=== PATIENT | male | born 1955 | race American Indian/Alaskan Native ===

== ENCOUNTER 2017-12-12 06:02 | Day surgery (SDC) | payer BC ==
[~2017-12-12 06:02] MED LIST: ANCEF/STERILE WATER 2 GM/20 ML IV NR; NACL 0.9% 1000 ML 1,000 ML IV SCH; PEPCID PO NR; VERSED IV NR
[2017-12-12] MEDS ORDERED: NACL BACTERIOSTATIC INFILTRATI ONE (06:31)
[2017-12-12] MEDS ORDERED: ZOFRAN ONE (07:00)
--- NOTE | 2017-12-12 07:02 | Anesthesia Consultation ---
Anesthesia Consult and Med Hx Date of service: 12/12/17 - Airway Anesthetic Teeth Evaluation: Good ROM Head & Neck: Adequate Mental/Hyoid Distance: Adequate Mallampati Class: Class II Intubation Access Assessment: Good - Pulmonary Exam CTA: Yes - Cardiac Exam Cardiac Exam: No Murmur - Pre-Operative Health Status ASA Pre-Surgery Classification: ASA3 Proposed Anesthetic Plan: General - Pulmonary Hx Smoking: Yes (STOPPED CIGARS X 7 YRS) Hx Asthma: No COPD: Yes Hx Pneumonia: No Hx Sleep Apnea: Yes (DX SLEEP APNEA , NO CPAP USE.) - Cardiovascular System Hx Hypertension: Yes (X 30 YRS) - Central Nervous System Hx Back Pain: Yes (FROM STONE) Hx Psychiatric Problems: No - Gastrointestinal Hx Gastroesophageal Reflux Disease: Yes (food related) - Endocrine Hx End Stage Renal Disease: No Hx Non-Insulin Dependent Diabetes: Yes - Other Systems Hx Alcohol Use: No Hx Substance Use: No Hx Cancer: No
--- NOTE | 2017-12-12 07:02 | Anesthesia Day of Surgery ---
Anesthesia Day of Surgery - Day of Surgery Patient Examined: Yes Patient H&P Reviewed: Yes Patient is NPO: Yes
[2017-12-12] MEDS ORDERED: PERCOCET 5/325 PO PRN (07:23)
[2017-12-12] MEDS ORDERED: ZOFRAN IV PRN (07:23)
[2017-12-12] MEDS ORDERED: DIPRIVAN 10 MG/ML IV ONE (07:34)
[2017-12-12] MEDS ORDERED: XYLOCAINE MPF 2% ONE (07:35)
[2017-12-12] MEDS ORDERED: NEO SYNEPHRINE/NS Syringe(OR USE) IV ONE (07:56)
[2017-12-12] MEDS ORDERED: OMNIPAQUE (300 MG) IR ONE (08:01)
[2017-12-12] MEDS: SUBLIMAZE IV PRN ×2 (08:49→09:18)
--- NOTE | 2017-12-12 09:18 | Operative Report ---
PREOPERATIVE DIAGNOSES: Right flank pain, bilateral renal stones. POSTOPERATIVE DIAGNOSES: Right flank pain, bilateral renal stones (passed stone). PROCEDURE: Cystoscopy, bilateral retrograde pyelograms, right rigid ureteroscopy, double-J stent (6 Bangladeshi 30 cm with an external string). SURGEON: Jaya Espinal MD ANESTHESIA: General. ESTIMATED BLOOD LOSS: Minimal. FLUIDS: Crystalloid. COMPLICATIONS: No complications. INDICATIONS: This patient is a 62-year-old gentleman seen in the office for back pain. CT of the abdomen and pelvis several months ago revealed small stones in the kidneys bilaterally, no hydronephrosis. The patient recently presented to the office with right flank, right distal pain. KUB unremarkable; however, he did have some microscopic hematuria. Persistent pain prompted surgical evaluation. Risks, benefits, and complications were explained. DESCRIPTION OF PROCEDURE: The patient was taken to the operative suite, placed in a supine position. After adequate general anesthesia, placed in a dorsal lithotomy position, prepped and draped in a sterile fashion. Obvious penile prosthesis could be palpated and functional. Rigid cystoscopy was performed. Urethra, prostate normal. Mild trilobar obstruction. Bladder, small fragments consistent with a small stone possibly broke up in the bladder. These could be washed out without difficulty. No tumors were noted bilaterally. Both ureteral orifices were in normal position. Bilateral retrograde pyelograms were obtained with an 8 Bangladeshi Montour catheter and 8 mL of contrast. No filling defects or obstruction. However, due to his persistent pain, 0.035 Glidewire was placed in the right kidney x 2. Ureteroscopy up to the proximal ureter. No obvious stone could be appreciated; however, there was some edema of the distal ureter suggested a recently passed stone. A 6-Bangladeshi 30 cm double-J stent was placed in the right collecting system under fluoroscopy, external string was left indwelling. Fluoroscopy confirmed adequate position. The bladder was drained. Rectal exam was benign. He was extubated and taken to recovery room in stable condition. He will go home on [place] [employer]. JOB# [id number] C/BOBY
--- NOTE | 2017-12-12 10:05 | Post Anesthesia Evaluation ---
- Post Anesthesia Evaluation Patient Participated: Yes Airway Patent: Yes Stable Respiratory Function: Yes Nausea/Vomiting: No Temp > 96.8F: Yes Pain Manageable: Yes Adequeate Hydration: Yes Anesthesia Complications: No Block Receding Appropriately: Not Applicable Patient on Ventilator: No
[2017-12-12 11:18] VITALS: BP 143/86
--- NOTE | 2017-12-13 10:57 | Fluoroscopy Report ---
10 FLUOROSCOPIC IMAGES AT BILATERAL RETROGRADE PYELOGRAM: 12/12/17 CLINICAL: Right ureteral stone. FINDINGS: Stained Glass Painter images a phlebolith in the left pelvis but no definite urinary calculus.. Subsequent images demonstrate retrograde opacification of normal caliber bilateral renal collecting systems and ureters. A right ureteral stent was placed. For more detail, please refer to the operative report.
== END 2017-12-12 10:42 | disposition home or self-care (01) ==
LOC: OR 06:02
PROVIDERS: ATTEND Urology
DX: N20.0 Calculus of kidney (principal); J44.9 Chronic obstructive pulmonary disease, unspecified; K21.9 Gastro-esophageal reflux disease without esophagitis; E11.9 Type 2 diabetes mellitus without complications; Z87.891 Personal history of nicotine dependence; Z79.899 Other long term (current) drug therapy; Z79.84 Long term (current) use of oral hypoglycemic drugs
CPT/HCPCS: 52332; 74420; 82962; C1758; C1769; C2617; J0690; J2250; J2370; J2405; J2704; J3010; J7030; Q9967

== ENCOUNTER 2018-04-01 14:37 | Emergency (ER) | payer BC ==
[2018-04-01 14:55] VITALS: BP 104/68
[2018-04-01] MEDS ORDERED: BENADRYL IV ONE (17:16)
[2018-04-01] MEDS ORDERED: FIORICET PO ONE (17:16)
[2018-04-01] MEDS ORDERED: DECADRON IV ONE (17:16)
[2018-04-01] MEDS ORDERED: REGLAN IV ONE (17:16)
--- NOTE | 2018-04-01 18:04 | Cat Scan Report ---
FINAL REPORT EXAM: CT HEAD/BRAIN WO CON HISTORY: headache TECHNIQUE: CT head without contrast PRIORS: None. FINDINGS: No acute intra-axial or extra-axial hemorrhage is identified. There is no evidence of midline shift or mass effect. The ventricles and sulci are within normal limits. Schwartz-white matter differentiation is intact. No acute parenchymal abnormalities seen. Bony calvarium is grossly intact. Visualized portions of the mastoids and paranasal sinuses are unremarkable. IMPRESSION: Negative CT head
[2018-04-01] MEDS ORDERED: NORCO PO ONE (18:37)
--- NOTE | 2018-04-01 18:37 | Emergency Department Report ---
ED General Adult HPI - General Chief complaint: Headache Stated complaint: MIGRAINE/TROUBLE FALLING ASLEEP AT NIGHT Time Seen by Provider: 04/01/18 17:12 Source: patient Mode of arrival: Ambulatory Limitations: No Limitations - History of Present Illness Initial comments: Patient complains of a diffuse headache for the last 3-4 days. He describes the headache as tension-like in nature. Patient states he has headaches at least once a month but this was different because it is not relieved by his home medications. Patient denies this being the worse headache of his life. He states that his headache is made worse by bright lights and loud sounds. Patient states that the headache feels like someone has a vice manager reading on his head -: Sudden Location: head Radiation: non-radiation Severity scale (0 -10): 8 Quality: other (throbbing) Consistency: constant Improves with: none Associated Symptoms: denies other symptoms Treatments Prior to Arrival: none - Related Data Home Medications Medication Instructions Recorded Confirmed Last Taken Benazepril HCl [Lotensin] 20 mg PO DAILY 02/08/16 12/10/17 12/12/17 05:45 Simvastatin [Zocor TAB] 40 mg PO QHS 02/08/16 12/10/17 12/11/17 busPIRone [Buspar] 15 mg PO TID 02/08/16 12/10/17 12/12/17 05:45 Amlodipine Besylate [Norvasc] 10 mg PO DAILY 12/10/17 12/10/17 12/11/17 Insulin Lispro [HumaLOG VIAL] 23 units SQ TID 12/10/17 12/10/17 12/11/17 Vortioxetine Hydrobromide 20 mg PO DAILY 12/10/17 12/10/17 12/12/17 05:45 [Trintellix] hydrALAZINE [Apresoline] 25 mg PO TID 12/10/17 12/10/17 12/12/17 05:45 Previous Rx's Medication Instructions Recorded Last Taken Type Butalb/Acetamin/Caff 50-325-40 1 tab PO Q6HR PRN #24 tab 04/01/18 Unknown Rx [Fioricet] Allergies Allergy/AdvReac Type Severity Reaction Status Date / Time No Known Allergies Allergy Verified 12/10/17 14:24 ED Review of Systems ROS: Stated complaint: MIGRAINE/TROUBLE FALLING ASLEEP AT NIGHT Other details as noted in HPI ED Past Medical Hx - Past Medical History Previous Medical History?: Yes Hx Hypertension: Yes (X 30 YRS) Hx Congestive Heart Failure: No Hx Diabetes: Yes Hx GERD: Yes (FOOD RELATED) Hx Arthritis: Yes (KNEES) Hx Kidney Stones: Yes Hx Asthma: No Hx COPD: Yes Hx Tuberculosis: No (POSITVE SKIN TEST , NO TX , NEGATIVE CXR 1999) Hx HIV: No Additional medical history: LEFT THUMB INJURY - Surgical History Past Surgical History?: No - Social History Smoking Status: Former Smoker Substance Use Type: Prescribed - Medications Home Medications: Home Medications Medication Instructions Recorded Confirmed Last Taken Type Benazepril HCl [Lotensin] 20 mg PO DAILY 02/08/16 12/10/17 12/12/17 05:45 History Simvastatin [Zocor TAB] 40 mg PO QHS 02/08/16 12/10/17 12/11/17 History busPIRone [Buspar] 15 mg PO TID 02/08/16 12/10/17 12/12/17 05:45 History Amlodipine Besylate [Norvasc] 10 mg PO DAILY 12/10/17 12/10/17 12/11/17 History Insulin Lispro [HumaLOG VIAL] 23 units SQ TID 12/10/17 12/10/17 12/11/17 History Vortioxetine Hydrobromide 20 mg PO DAILY 12/10/17 12/10/17 12/12/17 05:45 History [Trintellix] hydrALAZINE [Apresoline] 25 mg PO TID 12/10/17 12/10/17 12/12/17 05:45 History Butalb/Acetamin/Caff 50-325-40 1 tab PO Q6HR PRN #24 tab 04/01/18 Unknown Rx [Fioricet] ED Physical Exam - General Limitations: No Limitations General appearance: alert, in no apparent distress - Head Head exam: Present: atraumatic, normocephalic - Eye Eye exam: Present: normal appearance - ENT ENT exam: Present: mucous membranes moist - Neck Neck exam: Present: normal inspection - Respiratory Respiratory exam: Present: normal lung sounds bilaterally. Absent: respiratory distress - Cardiovascular Cardiovascular Exam: Present: regular rate, normal rhythm. Absent: systolic murmur, diastolic murmur, rubs, gallop - GI/Abdominal GI/Abdominal exam: Present: soft, normal bowel sounds - Rectal Rectal exam: Present: deferred - Extremities Exam Extremities exam: Present: normal inspection - Back Exam Back exam: Present: normal inspection - Neurological Exam Neurological exam: Present: alert, oriented X3, CN II-XII intact. Absent: motor sensory deficit - Psychiatric Psychiatric exam: Present: normal affect, normal mood - Skin Skin exam: Present: warm, dry, intact, normal color. Absent: rash ED Course Vital Signs 04/01/18 14:50 Temperature 98 F Pulse Rate 99 H Respiratory 28 H Rate Blood Pressure 104/68 O2 Sat by Pulse 99 Oximetry ED Medical Decision Making - Medical Decision Making Discussed results with the patient Symptoms improved with medications Critical care attestation.: If time is entered above; I have spent that time in minutes in the direct care of this critically ill patient, excluding procedure time. ED Disposition Clinical Impression: Head ache Disposition: DC-01 TO HOME OR SELFCARE Is pt being admited?: No Does the pt Need Aspirin: No Condition: Stable Instructions: Acute Headache (ED) Additional Instructions: Return if symptoms are worse Prescriptions: Butalb/Acetamin/Caff 50-325-40 [Fioricet] 1 tab PO Q6HR PRN #24 tab PRN Reason: Headache Referrals: PRIMARY CARE, [Primary Care Provider] - 3-5 Days Time of Disposition: 18:38
== END 2018-04-01 19:16 | disposition home or self-care (01) ==
LOC: ED 14:37
DX: R51 Headache (principal); I10 Essential (primary) hypertension; E11.9 Type 2 diabetes mellitus without complications; M19.90 Unspecified osteoarthritis, unspecified site; K21.9 Gastro-esophageal reflux disease without esophagitis; J44.9 Chronic obstructive pulmonary disease, unspecified; Z87.442 Personal history of urinary calculi; Z87.891 Personal history of nicotine dependence; Z79.4 Long term (current) use of insulin
CPT/HCPCS: 70450; 96374; 96375; 99283; J1100; J1200; J2765

== ENCOUNTER 2018-06-19 12:05 | Emergency (ER) | payer BC ==
--- NOTE | 2018-06-19 13:42 | Emergency Department Report ---
ED Headache HPI - General Chief Complaint: Headache Stated Complaint: HEACHACHE Time Seen by Provider: 06/19/18 13:41 Source: patient, family - History of Present Illness Initial Comments: This is a 63-year-old male patient here reports that he has had a bed has been going on for 2 weeks and he has been seen by his primary care physician regarding headache and place him on ibuprofen. He reports he has an appointment with neurologist on 06/25/2018. He denies any blurred vision, dizziness or nausea vomiting. Headache is located at the right side of his head and it feels tense. Denies any change in vision. He said this is not the first time that he had a headache. He came here and had CT scan of the head 2- 3 months ago and I reviewed his chart and CT scan was done and there were no findings. Patient said his headache is 7 out of 10 and it feels tense located to the right side of head. Patient said he was treated with headache medicine that they gave him in March and it helped his headache. I reviewed record and CT scan of his head that was done in March was negative. He said he has been taken Tylenol without any relief. Patient has history of diabetes, COPD, arthritis and hypertension. Timing/Duration: waxing and waning (2 weeks) Quality: severe, other (7/10) Head Injury Location: frontal, parietal (right) Recent Head Trauma: chronic headaches Modifying Factors: improves with: rest Associated Symptoms: denies: confusion, fatigue, facial pain, fever/chills, flushing, loss of consciousness, nausea/vomiting, nasal congestion, nasal drainage, numbness in legs/feet, rash, seizures, sinus infection, stiff neck, vision changes, weakness Allergies/Adverse Reactions: Allergies No Known Allergies Allergy (Verified 12/10/17 14:24) Home Medications: Ambulatory Orders Benazepril HCl [Lotensin] 20 mg PO DAILY 02/08/16 Simvastatin [Zocor TAB] 40 mg PO QHS 02/08/16 busPIRone [Buspar] 15 mg PO TID 02/08/16 Amlodipine Besylate [Norvasc] 10 mg PO DAILY 12/10/17 Insulin Lispro [HumaLOG VIAL] 23 units SQ TID 12/10/17 Vortioxetine Hydrobromide [Trintellix] 20 mg PO DAILY 12/10/17 hydrALAZINE [Apresoline] 25 mg PO TID 12/10/17 Butalb/Acetamin/Caff 50-325-40 [Fioricet] 1 tab PO Q6HR PRN #24 tab 06/19/18 ED Review of Systems ROS: Stated complaint: HEACHACHE Other details as noted in HPI Constitutional: denies: chills, fever Eyes: denies: eye pain, eye discharge, vision change ENT: denies: ear pain, throat pain, congestion Respiratory: denies: cough, shortness of breath, SOB with exertion, SOB at rest , stridor, wheezing Cardiovascular: denies: chest pain, palpitations, edema, syncope Gastrointestinal: denies: abdominal pain, nausea, diarrhea Genitourinary: dysuria. denies: hematuria Musculoskeletal: denies: back pain, joint swelling, arthralgia, myalgia Skin: denies: rash, lesions Neurological: headache. denies: weakness, numbness, paresthesias, confusion, abnormal gait, vertigo ED Past Medical Hx - Past Medical History Previous Medical History?: Yes Hx Hypertension: Yes (X 30 YRS) Hx Congestive Heart Failure: No Hx Diabetes: Yes Hx GERD: Yes (FOOD RELATED) Hx Arthritis: Yes (KNEES) Hx Seizures: Yes Hx Kidney Stones: Yes Hx Asthma: No Hx COPD: Yes Hx Tuberculosis: No (POSITVE SKIN TEST , NO TX , NEGATIVE CXR 1999) Hx HIV: No Additional medical history: LEFT THUMB INJURY - Surgical History Past Surgical History?: Yes Additional Surgical History: right knee cartlidge repair'. left knee torn meniscus - Family History Family history: hypertension - Social History Smoking Status: Never Smoker Substance Use Type: None - Medications Home Medications: Home Medications Medication Instructions Recorded Confirmed Last Taken Type Benazepril HCl [Lotensin] 20 mg PO DAILY 02/08/16 12/10/17 12/12/17 05:45 History Simvastatin [Zocor TAB] 40 mg PO QHS 02/08/16 12/10/17 12/11/17 History busPIRone [Buspar] 15 mg PO TID 02/08/16 12/10/17 12/12/17 05:45 History Amlodipine Besylate [Norvasc] 10 mg PO DAILY 12/10/17 12/10/17 12/11/17 History Insulin Lispro [HumaLOG VIAL] 23 units SQ TID 12/10/17 12/10/17 12/11/17 History Vortioxetine Hydrobromide 20 mg PO DAILY 12/10/17 12/10/17 12/12/17 05:45 History [Trintellix] hydrALAZINE [Apresoline] 25 mg PO TID 12/10/17 12/10/17 12/12/17 05:45 History Butalb/Acetamin/Caff 50-325-40 1 tab PO Q6HR PRN #24 tab 06/19/18 Unknown Rx [Fioricet] ED Physical Exam - General Limitations: No Limitations General appearance: alert, in no apparent distress - Head Head exam: Present: atraumatic, normocephalic, normal inspection, other (normal exam) - Eye Eye exam: Present: normal appearance, PERRL, EOMI. Absent: conjunctival injection, nystagmus, periorbital swelling, periorbital tenderness Pupils: Present: normal accommodation - ENT ENT exam: Present: normal exam, normal orophraynx, mucous membranes moist, TM's normal bilaterally, normal external ear exam, other (nasal mucosa normal and bilateral frontomaxillary sinuses nontender to palpate) - Neck Neck exam: Present: normal inspection, full ROM, other (no C-spine tenderness). Absent: tenderness, lymphadenopathy - Respiratory Respiratory exam: Present: normal lung sounds bilaterally. Absent: respiratory distress, chest wall tenderness - Cardiovascular Cardiovascular Exam: Present: regular rate, normal rhythm, normal heart sounds. Absent: systolic murmur, diastolic murmur - GI/Abdominal GI/Abdominal exam: Present: soft, normal bowel sounds. Absent: distended, tenderness, guarding, rebound, rigid, mass - Extremities Exam Extremities exam: Present: normal inspection, full ROM, normal capillary refill , other (No cce. + 2 pulses in all extremities, no neurovascular compromise). Absent: tenderness, pedal edema, joint swelling, calf tenderness - Back Exam Back exam: Present: normal inspection, full ROM, other (ambulates without any difficulties). Absent: tenderness, CVA tenderness (R), CVA tenderness (L), muscle spasm, paraspinal tenderness, vertebral tenderness, rash noted - Neurological Exam Neurological exam: Present: alert, oriented X3, normal gait, reflexes normal. Absent: motor sensory deficit - Expanded Neurological Exam Expanded Neurological exam: Absent: innattentive, memory loss-remote event, memory loss- recent event, ataxia, receptive aphasia, expressive aphasia, total aphasia, tremor, protecting the airway Patient oriented to: Present: person, place, time Speech: Present: fluid speech Cranial nerves: EOM's Intact: Normal, Gag Reflex: Normal, Tongue Deviation: Normal, Nystagmus: Normal, Facial Sensation: Normal Cerebellar function: Romberg: Normal Upper motor neuron: Pronator Drift: Normal, Sensory Extinction: Normal Sensory exam: Upper Extremity Light Touch: Normal, Upper Extremity Pin Prick: Normal, Upper Extremity Temperature: Normal, UE 2 Point Discrimination: Normal, Lower Extremity Light Touch: Normal, Lower Extremity Pin Prick: Normal Motor strength exam: RUE: 5, LUE: 5, RLE: 5, LLE: 5 Best Eye Response (Wil[place]): (4) open spontaneously Best Motor Response ([place]): (6) obeys commands Best Verbal Response (Wilner): (5) oriented Wilner Total: 15 - Psychiatric Psychiatric exam: Present: normal affect, normal mood - Skin Skin exam: Present: warm, dry, intact, normal color. Absent: rash ED Course Vital Signs 06/19/18 06/19/18 12:29 14:17 Temperature 98.1 F Pulse Rate 91 H Respiratory 20 16 Rate Blood Pressure 144/92 O2 Sat by Pulse 98 Oximetry - Reevaluation(s) Reevaluation #1: 06/19/18 16:50 Patient given Decadron 10 mg IM, Reglan 10 mg IM and Toradol 60 mg IM for headache which relieved his headache. He said he feels better. ED Medical Decision Making - Radiology Data Radiology results: report reviewed CT scan of the head and brain without contrast was done on 04/01/2018 and showed negative exam. Patient for neurologist visit on 06/25/2018. Headache managed by primary care physician Dr. Olivarez Patient: TATIANA ANNA MR#: [id number] : 1955 Acct:[id number] Age/Sex: 63 / M ADM Date: 04/01/18 Loc: ED Attending Dr: Ordering Physician: LULU PARRA MD Date of Service: 04/01/18 Procedure(s): CT head/brain wo con Accession Number(s): [id number] cc: LULU PARRA MD FINAL REPORT EXAM: CT HEAD/BRAIN WO CON HISTORY: headache TECHNIQUE: CT head without contrast PRIORS: None. FINDINGS: No acute intra-axial or extra-axial hemorrhage is identified. There is no evidence of midline shift or mass effect. The ventricles and sulci are within normal limits. Schwartz-white matter differentiation is intact. No acute parenchymal abnormalities seen. Bony calvarium is grossly intact. Visualized portions of the mastoids and paranasal sinuses are unremarkable. IMPRESSION: Negative CT head Transcribed By: CATRACHITO Dictated By: FRANK SHAH MD Electronically Authenticated By: FRANK SHAH MD Signed Date/Time: 04/01/181758 DD/ 58 TD/TT: 04/01/181758 - Medical Decision Making 63-year-old male returning to the emergency room reporting that he is having headache on the right side of his head. He has had similar headaches before and he has had CT scan of the head and march which was negative. Patient does have a primary care physician who is Dr. Olivarez and he was referred to neurologist which is scheduled for 06/25/2018. He said he gets frequent headaches and he thinks is from stress from having his daughter and her 5 children live in his house. He is not having any other symptoms aside from headache. She was seen by myself and examination and normal neurological neck exam. Patient had exam is normal and he ambulates without any difficulties. Patient was treated with Toradol, Decadron and Reglan and got relief of her headache completely. I discussed with him that he needs to keep his appointment with neurologist on 06/25/2018 and I will put him on medication which she was on in the past that helped his headache. He voiced understanding. episodic headache-resolved. Patient was given Reglan 10 mg IM, Decadron 10 mg IM and Toradol 60 mg IM in emergency room. I will send him home on Fioricet. Patient discharged home in stable condition with prescription for Fioricet and to continue his follow-up with neurologist and primary care physician in 3-5 days. He voiced understanding. Vital signs are stable he is afebrile and pain as gone. They should discharged home with prescription for Fioricet. Critical care attestation.: If time is entered above; I have spent that time in minutes in the direct care of this critically ill patient, excluding procedure time. ED Disposition Clinical Impression: Headache Qualifiers: Headache type: unspecified Headache chronicity pattern: episodic headache Intractability: not intractable Qualified Code(s): R51 - Headache Disposition: DC-01 TO HOME OR SELFCARE Is pt being admited?: No Does the pt Need Aspirin: No Condition: Stable Instructions: Acute Headache (ED) Additional Instructions: Please follow up with the primary care physician regarding headache and also keep ear appointment with neurologist for follow-up headache Take Fioricet as prescribed. Increasing her fluid intake to mostly water. If you headache returned and her experiencing dizziness, nausea, vomiting, blurred vision and her fevers chills please return to emergency room. Prescriptions: Butalb/Acetamin/Caff 50-325-40 [Fioricet] 1 tab PO Q6HR PRN #24 tab PRN Reason: Headache Referrals: ANTWAN OLIVAREZ MD [Primary Care Provider] - 3-5 Days follow-up with, neurologist [Other] - 06/25/18 (Keep appointment for 06/25/2018) Forms: Work/School Release Form(ED)
[2018-06-19] MEDS ORDERED: DECADRON IM ONE (13:45)
[2018-06-19] MEDS ORDERED: REGLAN IM ONE (13:45)
[2018-06-19] MEDS ORDERED: TORADOL IM ONE (13:45)
[2018-06-19 17:17] VITALS: BP 142/88
== END 2018-06-19 17:00 | disposition home or self-care (01) ==
LOC: ED 12:05
DX: R51 Headache (principal); I10 Essential (primary) hypertension; E11.9 Type 2 diabetes mellitus without complications; K21.9 Gastro-esophageal reflux disease without esophagitis; M19.90 Unspecified osteoarthritis, unspecified site; J44.9 Chronic obstructive pulmonary disease, unspecified; Z79.82 Long term (current) use of aspirin
CPT/HCPCS: 96372; 99282; J1100; J1885; J2765

== ENCOUNTER 2020-04-14 10:30 | Day surgery (SDC) | payer MEDICARE ==
[~2020-04-14 10:30] MED LIST changes: -ANCEF/STERILE WATER 2 GM/20 ML IV NR; -NACL 0.9% 1000 ML 1,000 ML IV SCH; -PEPCID PO NR; +SODIUM CHLORIDE 0.9% 1000 ML 1,000 ML IV SCH; -VERSED IV NR
[2020-04-14] MEDS ORDERED: LIDOCAINE MPF (2%) 20 MG/1 ML VIAL 5 ML ONE (11:00)
--- NOTE | 2020-04-14 11:39 | Anesthesia Consultation ---
Anesthesia Consult and Med Hx Date of service: 04/14/20 - Airway Anesthetic Teeth Evaluation: Good ROM Head & Neck: Adequate Mental/Hyoid Distance: Adequate Mallampati Class: Class III Intubation Access Assessment: Probably Good - Pre-Operative Health Status ASA Pre-Surgery Classification: ASA3 Proposed Anesthetic Plan: MAC - Pulmonary Hx Smoking: Yes (STOPPED CIGARS) Hx Asthma: No Hx Respiratory Symptoms: No SOB: No COPD: No Home Oxygen Therapy: No Hx Pneumonia: No Hx Sleep Apnea: Yes - Cardiovascular System Hx Hypertension: Yes Hx Coronary Artery Disease: No Hx Heart Attack/AMI: No Hx Angina: No Hx Percutaneous Transluminal Coronary Angioplasty (PTCA): No Hx Cardia Arrhythmia: No Hx Pacemaker: No Hx Internal Defibrillator: No Hx Valvular Heart Disease: No Hx Heart Murmur: No Hx Peripheral Vascular Disease: No - Central Nervous System Hx Neuromuscular Disorder: No Hx Seizures: No CVA: No Hx Back Pain: Yes (FROM KIDNEY STONE) Hx Psychiatric Problems: Yes (anexity/depression) - Gastrointestinal Hx Ulcer: No Hx Gastroesophageal Reflux Disease: Yes (food related) - Endocrine Hx Renal Disease: No (kidney stones) Hx End Stage Renal Disease: No Hx Cirrhosis: No Hx Liver Disease: No (fatty liver) Hx Insulin Dependent Diabetes: Yes Hx Non-Insulin Dependent Diabetes: No Hx Thyroid Disease: No Hx Hypothyroidism: No Hx Hyperthyroidism: No - Hematic Hx Anemia: No Hx Sickle Cell Disease: No - Other Systems Hx Alcohol Use: No Hx Substance Use: No Hx Cancer: No Hx Obesity: Yes
--- NOTE | 2020-04-14 11:40 | Anesthesia Day of Surgery ---
Anesthesia Day of Surgery - Day of Surgery Patient Examined: Yes Patient H&P Reviewed: Yes Patient is NPO: Yes
[2020-04-14] MEDS ORDERED: propofoL 200 MG/20 ML VIAL IV ONE ×2 (11:47)
--- NOTE | 2020-04-14 12:12 | History and Physical Report ---
HISTORY OF PRESENT ILLNESS: A 65-year-old gentleman with an underlying history of hypertension, hyperlipidemia, diabetes mellitus, and fatty liver, whose last colonoscopy was several years ago. He has come lately, been noticing some GI bleeding and is to have a colonoscopy done as part of colon polyp screening and also to assess for the source of his bleeding. He also has GERD symptoms. EGD will be done to assess for the severity of his erosive esophagitis. SOCIAL HISTORY: Denies history of smoking or alcohol use. No cardiac issues. He has had his flu shots. MEDICATIONS: Include Lotensin, aspirin, Effexor, iron, multivitamins, Norvasc, Advil and simvastatin. He has been asked to come off the iron and the aspirin for a few days prior to his procedure. ALLERGIES: No known allergies. PHYSICAL EXAMINATION: VITAL SIGNS: His temperature is 97.1, blood pressure 150/89, pulse is 87, height is 6 feet 2 inches, weight is 282 pounds. HEENT: Shows no JVD. LUNGS: Clear to auscultation with some reduced breath sounds. CARDIOVASCULAR: Normal. ABDOMEN: Soft. Bowel sounds present. NEUROLOGIC: He is alert and oriented. ASSESSMENT: Gastroesophageal reflux disease symptoms, esophagitis, history of GI bleeding, colon polyp screening, hypertension, hyperlipidemia, fatty liver, diabetes mellitus type 2. PLAN: To do an EGD and a colonoscopy at [facility] [place], Luis has been given as his prep and he is to have some lab work done as an outpatient for his liver function test to assess for his fatty liver. JOB# [id number] DEMETRIUS/BOBY
[2020-04-14 12:38] VITALS: BP 140/86
--- NOTE | 2020-04-14 12:46 | Procedure Note ---
Date of procedure: 04/14/20 Pre-op diagnosis: GERD/Colon Polyp Screening/ GI Bleeding Post-op diagnosis: other (mild to Moderate Erosive Esophagitis/ R/O Eosinophilic Esopjhagitis/ Gastritis/ Solitary,Small cecal Polyp/ Mild to Moderate Internal Hemorrhoid (possible cause of the GI Bleeding)) Procedure: EGD with biopsy/ Colonoscopy with biopsy Anesthesia: [facility] [place] Surgeon: CECE WINN Estimated blood loss: minimal Pathology: list Specimen disposition: to lab Condition: stable Disposition: same day (Treat with PPI and OTC hemorrhoidal medication. Avoid aspirin and NSAID for 4 days; otherwise resume home medication. Follow up in 1 to 2 weeks ([phone]).)
--- NOTE | 2020-04-14 13:31 | Operative Report ---
PROCEDURE: Esophagogastroduodenoscopy with biopsy. INDICATIONS: A 65-year-old -[place] gentleman with an underlying history of diabetes mellitus, hypertension, prior history of possible eosinophilic esophagitis, who has been having GERD symptoms. EGD was done to assess for the severity of this esophagitis. PROCEDURE IN DETAIL: The procedure was done after getting informed consent with MAC anesthesia. Instrument was passed through the hypopharynx into the esophagus, which showed mild to moderate distal erosive esophagitis. Biopsy was done from the distal esophagus as well as the midesophagus to rule out for eosinophilic esophagitis. The stomach showed gastritis. Pylorus was patent. Duodenum in the first and second portion appeared normal. Biopsy was done from the gastric antrum, gastric body and angular incisura to rule out for H. pylori and atrophic gastritis. There was minimal bleeding associated with the procedure. No complications associated with the procedure. ASSESSMENT: Gastroesophageal reflux disease symptoms, esophagitis, rule out eosinophilic esophagitis, gastritis. PLAN: Treat the patient with PPI, have the patient avoid aspirin and aspirin-related products for the next few days, and to do a colonoscopy as part of colon polyp screening. The patient also has been complaining of some lower GI bleeding. The patient again will be asked to avoid aspirin and aspirin-related products, resume home medication, and be treated with PPI and colonoscopy will be done for further assessment. The procedure was done with assistance of the GI lab team, which included MARIELOS, Bryan Mcfadden and with the assistance of Anesthesia. JOB# [id number] DEMETRIUS/BOBY
--- NOTE | 2020-04-14 14:01 | Operative Report ---
INDICATIONS: This is a 65-year-old -[place] gentleman with an underlying history of diabetes mellitus and hypertension. He had a colonoscopy done prior to the EGD, which showed presence of esophagitis and gastritis, but no peptic ulcer disease. DESCRIPTION OF PROCEDURE: Colonoscopy was done using a pediatric colonoscope. Initial rectal exam was unremarkable. Instrument was passed through the rectum onto the cecum, which was identified with ileocecal valve and appendiceal orifice. Cecum was also evaluated on the retroverted view. Visualization was fair. In the cecum, there was a small solitary polyp about 7-8 mm in diameter that was removed by cold biopsy. The remaining part of the cecum, ascending colon, transverse colon, descending colon, and sigmoid showed normal mucosa. The rectum showed [id number] internal hemorrhoid, which may have been the cause of the patient's bleeding. There was no additional pathology noted and minimal bleeding associated with the polypectomy. No complications associated with the procedure. ASSESSMENT: Colon polyp screening, solitary cecal polyp, mild to moderate internal hemorrhoid. Prep was fair. PLAN: I have advised the patient to be treated with [id number] hemorrhoidal medication. Treat the patient with PPI because of the EGD findings of esophagitis and gastritis. Have the patient to avoid aspirin and aspirin-related products for the next 4 days, otherwise resume home medication and follow up in the office in 1-2 weeks' time. This procedure was done in the GI lab with assistance of the GI lab team, which included hussein Urbina and with assistance of anesthesia. JOB# [id number] DEMETRIUS/BOBY
== END 2020-04-14 10:31 | disposition home or self-care (01) ==
LOC: GIO 10:30
DX: Z12.11 Encounter for screening for malignant neoplasm of colon (principal); K21.0 Gastro-esophageal reflux disease with esophagitis; D12.0 Benign neoplasm of cecum; K29.50 Unspecified chronic gastritis without bleeding; K64.8 Other hemorrhoids; E11.9 Type 2 diabetes mellitus without complications; I10 Essential (primary) hypertension; E78.5 Hyperlipidemia, unspecified; Z79.899 Other long term (current) drug therapy; Z79.4 Long term (current) use of insulin; J44.9 Chronic obstructive pulmonary disease, unspecified; Z98.890 Other specified postprocedural states; F32.9 Major depressive disorder, single episode, unspecified; G47.30 Sleep apnea, unspecified; E66.9 Obesity, unspecified; Z87.442 Personal history of urinary calculi; M19.90 Unspecified osteoarthritis, unspecified site; F41.9 Anxiety disorder, unspecified
CPT/HCPCS: 43239; 45380; 82962; 88305; 88342; J2704; J7030; 88312

== ENCOUNTER 2021-04-20 07:11 | Day surgery (SDC) | payer MEDICARE ==
[2021-04-20] MEDS ORDERED: propofoL 200 MG/20 ML VIAL IV ONE ×2 (07:37)
[2021-04-20] MEDS ORDERED: fentaNYL 100 MCG/2 ML INJ ONE (07:37)
[2021-04-20] MEDS ORDERED: LIDOCAINE MPF (2%) 20 MG/1 ML VIAL 5 ML ONE (07:37)
--- NOTE | 2021-04-20 07:51 | Anesthesia Day of Surgery ---
Anesthesia Day of Surgery - Day of Surgery Patient Examined: Yes Patient H&P Reviewed: Yes Patient is NPO: Yes Beta Blockers: No Cardiac Clearance: No (n/a) Pulmonary Clearance: No (n/a) Tio's Test: N/A
--- NOTE | 2021-04-20 07:51 | Anesthesia Consultation ---
Anesthesia Consult and Med Hx Date of service: 04/20/21 - Airway Anesthetic Teeth Evaluation: Poor, Chipped ROM Head & Neck: Adequate Mental/Hyoid Distance: Adequate Mallampati Class: Class III Intubation Access Assessment: Possibly Difficult - Pulmonary Exam CTA: Yes - Cardiac Exam Cardiac Exam: RRR - Pre-Operative Health Status ASA Pre-Surgery Classification: ASA3 Proposed Anesthetic Plan: MAC (No history of anesthesia complications. ) - Pulmonary Hx Smoking: Yes (STOPPED CIGARS) Hx Asthma: No Hx Respiratory Symptoms: No SOB: No COPD: No Hx Pneumonia: No Hx Sleep Apnea: Yes (regularly uses CPAP device per patient) - Cardiovascular System Hx Hypertension: Yes Hx Coronary Artery Disease: No Hx Heart Attack/AMI: No Hx Angina: No Hx Percutaneous Transluminal Coronary Angioplasty (PTCA): No Hx Cardia Arrhythmia: No Hx Pacemaker: No Hx Internal Defibrillator: No Hx Valvular Heart Disease: No Hx Heart Murmur: No Hx Peripheral Vascular Disease: No - Central Nervous System Hx Neuromuscular Disorder: No Hx Seizures: No CVA: No Hx Back Pain: Yes (FROM KIDNEY STONE) Hx Psychiatric Problems: Yes (anexity/depression) - Gastrointestinal Hx Ulcer: No Hx Gastroesophageal Reflux Disease: Yes (food related) - Endocrine Hx Renal Disease: No (kidney stones) Hx End Stage Renal Disease: No Hx Cirrhosis: No Hx Liver Disease: No (fatty liver) Hx Insulin Dependent Diabetes: Yes Hx Non-Insulin Dependent Diabetes: No Hx Thyroid Disease: No Hx Hypothyroidism: No Hx Hyperthyroidism: No - Hematic Hx Anemia: No Hx Sickle Cell Disease: No - Other Systems Hx Alcohol Use: No Hx Substance Use: No Hx Cancer: No Hx Obesity: Yes
[2021-04-20] MEDS ORDERED: DEXTROSE 50% IN WATER (25GM) 50 ML SYRINGE IV ONE ×2 (08:11→08:15)
--- NOTE | 2021-04-20 09:26 | Procedure Note ---
Date of procedure: 04/20/21 Pre-op diagnosis: GERD/ H/O Colon Polyp Post-op diagnosis: other (Mild to Moderate Erosive Esophagitis/ R/O Eosinophilic Esophagitis/ Gastritis/ Few,Proximal, Colon Diverticuli/ No Colon Polyps/ Minor,Internal Hemorrhoids/ Suboptimal Prep) Procedure: EGD with biopsy and Colonoscopy Anest[place]: [facility] [place] Surgeon: CECE WINN Estimated blood loss: minimal Pathology: list Specimen disposition: to lab Condition: stable Disposition: same day (Treat with PPI and encourage fiber intake. Avoid aspirin and NSAID and anticoagulants for 4 days; otherwise resume home medication and follow up in 1 to 2 weeks ([phone]).)
--- NOTE | 2021-04-20 09:29 | Operative Report ---
DATE OF SURGERY: 04/20/2021 INDICATIONS: This is a 66-year-old -[place] gentleman with an underlying history of diabetes mellitus, hypertension, who has GERD symptoms, history of atrophic gastritis. EGD was done to make sure there was not any progression of his atrophic gastritis. DESCRIPTION OF PROCEDURE: Procedure was done after getting informed consent with MAC anesthesia. Instrument was passed through the hypopharynx into the esophagus, which showed some mild to moderate erosive esophagitis. Biopsy was done from the distal esophagus to assess for the severity of the erosive esophagitis and also from the mid esophagus to assess for possible eosinophilic esophagitis. The stomach showed gastritis. Biopsy was done from the gastric antrum, gastric body, and angularis incisura to rule out for H. pylori and atrophic gastritis. The pylorus is patent. Duodenum in the first and second portion appeared normal. There was minimal bleeding from the biopsy sites and no complications associated with the procedure. IMPRESSION: Gastroesophageal reflux disease symptoms, history of atrophic gastritis, mild to moderate erosive esophagitis, rule out eosinophilic esophagitis. PLAN: To treat the patient with PPI. Have the patient avoid aspirin and aspirin-related products. The patient does have prior history of colon polyps. A colonoscopy will also be attempted to assess for colon polyps. The patient will be asked to follow up in the office in 1-2 weeks' time. Procedure was done in the GI lab with assistance of the GI lab team, which included RN, Laura Gardner; tech, health and safety techhussein Roberto and with assistance of anesthesia. TID: [id number] RECEIPT: [id number] NALDO
--- NOTE | 2021-04-20 09:31 | Operative Report ---
DATE OF SURGERY: 04/20/2021 INDICATIONS: This is a 66-year-old gentleman with an underlying history of diabetes mellitus and hypertension. DESCRIPTION OF PROCEDURE: EGD done prior to the colonoscopy had shown presence of esophagitis and gastritis, but no peptic ulcer disease. Colonoscopy was attempted since he has a prior history of colon polyps. The patient's prep was suboptimal and poor. The mucosa was washed with copious amounts of water. Initial rectal exam did not show anything. The instrument was passed through the rectum onto the cecum, which was identified by the ileocecal valve and the appendiceal orifice. There are few diverticula noted in the proximal colon. The cecum, ascending colon, transverse colon, descending colon, and sigmoid showed normal mucosa. In the rectum showed some minor internal hemorrhoids on the retroverted view. Again, his prep was suboptimal and poor. Mucosa had to be washed with copious amounts of water. The patient will require another colonoscopy possibly in a year's time. There was no bleeding associated with the colonoscopy and no complications associated with the colonoscopy. ASSESSMENT: History of colon polyps. No colon polyps noted. Few proximal colon diverticula, minor internal hemorrhoids, poor prep. The patient will be treated with PPI. Because of the EGD findings of esophagitis and gastritis, encouraged to take fiber supplements. Avoid aspirin and aspirin-related products for the next few days and some biopsies were done and have the patient follow up in the office in 1-2 weeks' time. Procedure was done in the GI lab with assistance of the GI lab team, which included RN, Laura Gardner; Felisa savage and with the assistance of anesthesia. TID: [id number] RECEIPT: [id number] DEMETRIUS/RUDI
[2021-04-20 10:16] VITALS: BP 126/78
== END 2021-04-20 10:25 | disposition home or self-care (01) ==
LOC: GIO 07:11
DX: D50.9 Iron deficiency anemia, unspecified (principal); K57.30 Diverticulosis of large intestine without perforation or abscess without bleeding; K64.8 Other hemorrhoids; I10 Essential (primary) hypertension; E11.9 Type 2 diabetes mellitus without complications; K21.00 Gastro-esophageal reflux disease with esophagitis, without bleeding; K29.40 Chronic atrophic gastritis without bleeding; J44.9 Chronic obstructive pulmonary disease, unspecified; E78.5 Hyperlipidemia, unspecified; F32.9 Major depressive disorder, single episode, unspecified; G47.30 Sleep apnea, unspecified; E66.9 Obesity, unspecified; M19.90 Unspecified osteoarthritis, unspecified site; F41.9 Anxiety disorder, unspecified; Z86.010 Personal history of colon polyps; Z79.899 Other long term (current) drug therapy; Z79.4 Long term (current) use of insulin; Z98.890 Other specified postprocedural states; Z87.442 Personal history of urinary calculi; Z68.35 Body mass index [BMI] 35.0-35.9, adult
CPT/HCPCS: 43239; 45378; 82962; 88305; 88342; J2704; J3010; J7030

== ENCOUNTER 2022-04-26 07:08 | Day surgery (SDC) | payer MEDICARE ==
[~2022-04-26 07:08] MED LIST changes: +WATER FOR IRRIG STERILE 1,000 ML BOTTLE ONE; +WATER FOR IRRIG STERILE 250 ML BOTTLE IR ONE
[2022-04-26] MEDS ORDERED: propofoL 200 MG/20 ML VIAL IV ONE ×2 (07:15→08:43)
--- NOTE | 2022-04-26 08:10 | Anesthesia Consultation ---
Anesthesia Consult and Med Hx Date of service: 04/26/22 - Airway Anesthetic Teeth Evaluation: Good ROM Head & Neck: Adequate Mental/Hyoid Distance: Adequate Mallampati Class: Class I Intubation Access Assessment: Good - Cardiac Exam Cardiac Exam: RRR - Pre-Operative Health Status ASA Pre-Surgery Classification: ASA2 Proposed Anesthetic Plan: MAC - Pulmonary Hx Smoking: Yes (STOPPED CIGARS) Hx Asthma: No Hx Respiratory Symptoms: No SOB: No COPD: Yes Hx Pneumonia: No Hx Sleep Apnea: Yes (regularly uses CPAP device per patient) - Cardiovascular System Hx Hypertension: Yes Hx Coronary Artery Disease: No Hx Heart Attack/AMI: No Hx Angina: No Hx Percutaneous Transluminal Coronary Angioplasty (PTCA): No Hx Cardia Arrhythmia: No Hx Pacemaker: No Hx Internal Defibrillator: No Hx Valvular Heart Disease: No Hx Heart Murmur: No Hx Peripheral Vascular Disease: No - Central Nervous System Hx Neuromuscular Disorder: No Hx Seizures: No CVA: No Hx Back Pain: Yes (FROM KIDNEY STONE) Hx Psychiatric Problems: Yes (anexity/depression) - Gastrointestinal Hx Ulcer: No Hx Gastroesophageal Reflux Disease: Yes (food related) - Endocrine Hx Renal Disease: No (kidney stones) Hx End Stage Renal Disease: No Hx Cirrhosis: No Hx Liver Disease: No (fatty liver) Hx Insulin Dependent Diabetes: Yes Hx Non-Insulin Dependent Diabetes: No Hx Thyroid Disease: No Hx Hypothyroidism: No Hx Hyperthyroidism: No - Hematic Hx Anemia: No Hx Sickle Cell Disease: No - Other Systems Hx Alcohol Use: No Hx Substance Use: No Hx Cancer: No Hx Obesity: Yes
--- NOTE | 2022-04-26 08:11 | Anesthesia Day of Surgery ---
Anesthesia Day of Surgery - Day of Surgery Patient Examined: Yes Patient H&P Reviewed: Yes Patient is NPO: Yes
--- NOTE | 2022-04-26 09:13 | Procedure Note ---
Date of procedure: 04/26/22 Pre-op diagnosis: H/O Colonb Polyps/ Colon Polyp Screening Post-op diagnosis: other (Two, Proximal colon Polyps/ Few,Left colon diverticuli/Minor, Internal Hemorrhoids) Procedure: Colonoscopy with Cold Snare Polypectomy and Cold Biopsy Anesthesia: MAC Surgeon: CECE WINN Estimated blood loss: minimal Pathology: list Specimen disposition: to lab Condition: stable Disposition: same day (Avoid aspirin and NSAID for 5 days otherwise resume previous medication and encourage fiber intake and F/U in 1 to 2 weeks ([phone]).)
--- NOTE | 2022-04-26 10:51 | Operative Report ---
DATE OF SURGERY: 04/26/2022 PROCEDURE: Colonoscopy with cold snare polypectomy and cold biopsy. INDICATIONS: This is a 67-year-old -[place] gentleman with an underlying history of diabetes mellitus, hypertension, prior history of colon polyps. Repeat colonoscopy was done to assess for any recurrence of any polyps. He had a colonoscopy done last year, but his prep was suboptimal at that time. DESCRIPTION OF PROCEDURE: Procedure was done after getting informed consent with MAC anesthesia. Initial rectal examination was unremarkable. The instrument was passed through the rectum onto the cecum, which was identified with ileocecal valve and appendiceal orifice. Visualization was fair. The cecum was also examined on the retroverted view. There was a 9-10 mm sessile polyp noted in the cecum that was removed by cold snare polypectomy and removed with the cold biopsy. An additional polyp was noted in the proximal ascending colon about 8 mm in diameter that was removed by cold biopsy, with minimal bleeding. The remaining part of the proximal and the transverse colon showed normal mucosa. There were a few diverticula, very minor, noted in the left colon. The rectum showed some minor internal hemorrhoid on the retroverted view. ASSESSMENT: History of colon polyps, colon polyp screening. Two proximal colon polyps noted and removed, one by cold snare polypectomy and the other by cold biopsy. Few left colon diverticula and minor internal hemorrhoids. The patient will be asked to avoid aspirin and aspirin-related products for the next few days, otherwise resume previous medication. Encouraged to take fiber supplements and follow up in the office in 1-2 weeks' time. Procedure was done in the GI lab with assistance of the GI lab team, which included the GI nurse, the operating theatre technician and with assistance of anesthesia. TID: [id number] RECEIPT: [id number] DEMETRIUS/ROSELIA
--- NOTE | 2022-04-26 12:00 | Post Anesthesia Evaluation ---
- Post Anesthesia Evaluation Patient Participated: Yes Airway Patent: Yes Stable Respiratory Function: Yes Nausea/Vomiting: No Temp > 96.8F: Yes Pain Manageable: Yes Adequeate Hydration: Yes Anesthesia Complications: No
[2022-04-26 18:00] VITALS: BP 140/80
== END 2022-04-26 09:25 | disposition home or self-care (01) ==
LOC: GIO 07:08
DX: Z12.11 Encounter for screening for malignant neoplasm of colon (principal); K63.5 Polyp of colon; K63.89 Other specified diseases of intestine; K57.30 Diverticulosis of large intestine without perforation or abscess without bleeding; K64.8 Other hemorrhoids; I10 Essential (primary) hypertension; J44.9 Chronic obstructive pulmonary disease, unspecified; E11.9 Type 2 diabetes mellitus without complications; E78.5 Hyperlipidemia, unspecified; F32.9 Major depressive disorder, single episode, unspecified; G47.30 Sleep apnea, unspecified; K21.00 Gastro-esophageal reflux disease with esophagitis, without bleeding; E66.9 Obesity, unspecified; M19.90 Unspecified osteoarthritis, unspecified site; F41.9 Anxiety disorder, unspecified; Z86.010 Personal history of colon polyps; Z79.899 Other long term (current) drug therapy; Z98.890 Other specified postprocedural states; Z87.442 Personal history of urinary calculi
CPT/HCPCS: 45380; 45385; 82962; 88305; J2704; J7030